=== PATIENT | female | born 1955 | race Hispanic/Latino ===

== ENCOUNTER 2023-09-28 11:11 | Outpatient (CLI) | payer MEDICARE | END 2023-09-28 11:12 | disposition home or self-care (01) | LOC: SCSRAD 11:11 | PROVIDERS: ATTEND Physician Assistant | DX: M79.604 Pain in right leg (principal); M51.36 Other intervertebral disc degeneration, lumbar region; M43.9 Deforming dorsopathy, unspecified | CPT/HCPCS: 72100 ==